=== PATIENT | female | born 1975 | race Caucasian/White ===

== ENCOUNTER → 2017-02-08 | Outpatient (CLI) | payer BC ==
[2017-02-08 08:33] LABS: ADD SCAN DIFF NO
[2017-02-08 08:39] LABS: HEMATOCRIT 37.9 % (37.0-47.0); HEMOGLOBIN 12.1 g/dl (12.0-16.0); MEAN CORPUSCULAR HEMOGLOBIN 27.3 pg (29.0-33.0); MEAN CORPUSCULAR HGB CONC 31.9 g/dl (32.0-37.0); MEAN CORPUSCULAR VOLUME 85.6 fl (82.0-101.0); RED BLOOD COUNT 4.43 10^6/ul (4.20-5.40); RED CELL DISTRIBUTION WIDTH 15.4 % (11.5-14.5); WHITE BLOOD COUNT 4.6 10^3/ul (4.8-10.8)
[2017-02-08 08:40] LABS: BASOPHIL # 0.1 10^3/ul (0.0-0.1); BASOPHILS % 1.1 % (0.0-2.0); EOSINOPHILS # 0.1 10^3/ul (0.0-0.5); EOSINOPHILS % 2.8 % (0.0-7.0); LYMPHOCYTES # 1.7 10^3/ul (0.8-2.9); LYMPHOCYTES % 36.5 % (15.0-51.0); MEAN PLATELET VOLUME 9.4 fl (7.4-10.4); MONOCYTE # 0.4 10^3/ul (0.3-0.9); MONOCYTES % 8.5 % (0.0-11.0); NEUTROPHIL # 2.3 10^3/ul (1.6-7.5); NEUTROPHILS % 50.9 % (39.0-77.0); PLATELET COUNT 295 10^3/UL (140-415)
[2017-02-08 08:56] LABS: ALBUMIN 4.2 g/dl (3.3-4.9)
[2017-02-08 08:59] LABS: ALBUMIN/GLOBULIN RATIO 1.23; BILIRUBIN,INDIRECT 0.4 mg/dl (0-1.1); BILIRUBIN,TOTAL 0.4 mg/dl (0.2-1.3); CREATININE 0.75 mg/dl (0.44-1.00); TOTAL PROTEIN 7.6 g/dl (6.1-8.1)
[2017-02-08 09:00] LABS: CHOL/HDL RATIO 2.2 RATIO
[2017-02-08 10:14] LABS: THYROID STIMULATING HORMONE 3.31 MIU/L (0.465-4.680)
== END | disposition home or self-care (01) ==
LOC: LAB 08:12
PROVIDERS: ATTEND Internal Medicine
DX: E78.5 Hyperlipidemia, unspecified (principal); E03.9 Hypothyroidism, unspecified; M06.9 Rheumatoid arthritis, unspecified
CPT/HCPCS: 80053; 80061; 84436; 84443; 85025; 85651; 86140

== ENCOUNTER → 2017-10-23 | Outpatient (CLI) | END | disposition home or self-care (01) ==

== ENCOUNTER 2018-03-31 15:48 | Emergency (ER) | END 2018-03-31 20:47 | disposition home or self-care (01) ==

== ENCOUNTER → 2018-06-04 | Outpatient (CLI) | END | disposition home or self-care (01) ==

== ENCOUNTER 2018-09-29 10:59 | Emergency (ER) | END 2018-09-29 12:08 | disposition home or self-care (01) ==